=== PATIENT | female | born 1950 | race Caucasian/White ===

== ENCOUNTER 2022-01-10 07:03 | Outpatient (CLI) | payer MEDICARE, BC, SELFPAY ==
--- NOTE | 2022-01-10 07:15 | CT_ITS ---
WS: [id number] CT ABDOMEN PELVIS TECHNIQUE: Noncontrast CT of the abdomen and pelvis with coronal and sagittal reformatted images. CLINICAL INFORMATION: KYLEE COMPARISON: Ultrasound December 26, 2021 DLP: 1243.[address] scans at [facility] use at least one of these dose optimization techniques: automated e xposure control; mA and/or kV adjustment per patient size (includes targeted exams where dose is matc hed to clinical indication); or iterative reconstruction. FINDINGS: Marked cirrhotic configuration to the liver. Hypoechoic lesions seen in the LEFT hepatic lobe at the dome of the liver on the recent ultrasound not well seen on this noncontrast study. Bulky enlargement LEFT hepatic lobe likely corresponds to the previously described nodules. Small bilateral pleural effusions. Moderate esophageal hiatal hernia with partial intrathoracic stoma ch. Normal spleen. Pancreas appears normal. Multiple enlarged lymph nodes in the cody hepatis nonspe cific but may be reactive. Adrenal glands are normal. No hydronephrosis in either kidney. This can be followed up with MRI or ultrasound. Prior cholecystectomy. Anteverted uterus. Bladder is decompressed. Diffuse body wall anasarca.Mild to moderate abdominal asc ites. Perihepatic and perisplenic ascites. Sigmoid diverticulosis. Colon is decompressed. No evidence of high-grade bowel obstruction. Mild disc space narrowing L5-S1. CT/CT abdomen pelvis wo con [id number] IMPRESSION: 1. Marked hepatic cirrhosis with cirrhotic configuration to the liver. 2. Enlarged lobular LEFT hepatic lobe likely corresponding to the lesions seen on the recent ultrasound although additional evaluation limited without contra st. This can be followed up with MRI or ultrasound. 3. Moderate esophageal hiatal hernia with partial intrathoracic stomach. 4. Normal size spleen. 5. Diffuse body wall anasarca and mesenteric edema with mild to moderate abdom inal and pelvic ascites. 6. Multiple prominent lymph nodes within the cody hepatis likely reactive. 7. Small RIGHT greater than LEFT pleural effusions. 8. Sigmoid diverticulosis.
[2022-01-10] MEDS: iohexol 300 mg/mL 50 mL Btl PO (08:48)
[2022-01-10 10:57] LABS: Blood Urea Nitrogen 12 mg/dL (8-23); Glomerular Filtration Rate 24.6 mL/min (90-130)
== END 2022-01-10 07:04 | disposition home or self-care (01) ==
PROVIDERS: Radiology Neuroradiology; Visit Provider Family Medicine
DX: K74.60 Unspecified cirrhosis of liver (principal); R16.0 Hepatomegaly, not elsewhere classified; K44.9 Diaphragmatic hernia without obstruction or gangrene; R60.1 Generalized edema; J90 Pleural effusion, not elsewhere classified; K57.30 Diverticulosis of large intestine without perforation or abscess without bleeding
CPT/HCPCS: 74176; 82565; 84520

== ENCOUNTER 2022-01-19 02:02 | Inpatient (IN) | payer MEDICARE, BC, SELFPAY ==
[2022-01-19] VITALS (16 sets, daily range): BP systolic 99–139; BP diastolic 60–85; PULSE 92–109; RESP 15–22; TEMP 36.6–37.1; O2SAT 92–100; BMI 35.5
--- NOTE | 2022-01-19 02:34 | XRR_ITS ---
PROCEDURE INFORMATION: Exam: XR Chest Exam date and time: 01/19/2022 2:50 AM Age: 71 years old Clinical indication: Dyspnea; Additional info: Hypoxia, SOB TECHNIQUE: Imaging protocol: XR of the chest. Views: 1 view. COMPARISON: CT abdomen pelvis con [id number] 01/10/2022 9:47 AM FINDINGS: Lungs: Exam is limited by patient rotation and low lung volumes. Pleural spaces: Unremarkable. No pleural effusion. No pneumothorax. Heart/Mediastinum: Unremarkable. No cardiomegaly. Bones/joints: Unremarkable. XR/XR chest 1V portable [id number] IMPRESSION: No acute cardiopulmonary abnormality.
[2022-01-19 04:15] LABS: Basophils # 0.1 10^3/uL (0.0-0.1); Basophils % 0.2 %; Hematocrit 28.5 % (37.0-47.0); Hemoglobin 9.5 g/dL (11.5-15.3); Lymphocytes # 2.2 10^3/uL (0.8-4.8); Lymphocytes % 10.5 %; Mean Corpuscular HGB Conc 33.3 g/dL (30.0-36.0); Mean Platelet Volume 10.2 fL (7.4-10.4); Monocytes # 2.2 10^3/uL (0.2-0.9); Monocytes % 10.3 %; Neutrophils # 16.43 10^3/uL (1.8-7.7); Neutrophils % 77.5 %; Nucleated Red Blood Cells # 0.1 /100WBC; Nucleated Red Blood Cells % 0.2 %; Platelet Count 137 10^3/cmm (130-400); Red Blood Count 2.88 10^6/uL (4.1-5.3); Red Cell Distribution Width 19.4 % (12.1-15.1); White Blood Count 21.2 10^3/uL (4.0-10.0)
--- NOTE | 2022-01-19 04:23 | W.ED.ABDPA2 ---
HPI - Abdominal Pain General: Chief Complaint: Abdominal Pain Stated Complaint: ABDOMINAL PAIN Time Seen by Provider: 01/19/22 02:07 Source: patient and family History of Present Illness: 71-year-old female with a history of autoimmune hepatitis. She presents with abdominal distention, pain, radiating into her back. She denies any fever. She denies significant vomiting. She is jaundiced as well. She seemed to have worsened in terms of jaundice last week. CT scan was ordered last week by her primary physician as well as a ultrasound. She was feeling worse this morning, so she decided to come to the hospital. MD elicited complaint: abdominal pain Pertinent past history: other Onset (ago): day(s) Pain Consistency: constant Location: Diffuse Quality: aching Radiation: back Exacerbating factors: movement Relieving factors: nothing Associated Symptoms: Reports bloating and excessive flatus; Denies change in stool character, chills, coffee ground emesis, constipation, diarrhea, dysuria, fever(s), hematochezia and vomiting Review of Systems Const: Denies: fever(s), chills or body aches Eyes: Denies: change in vision Card: Denies: chest pain Resp: Reports: dyspnea GI: Reports: bloating and excessive flatus; Denies: vomiting, coffee ground emesis, diarrhea, constipation, change in stool character or hematochezia : Denies: dysuria Skin/Breast: Reports: changes in skin color Neuro: Denies: headache(s) Physical Exam Const: GENERAL APPEARANCE: cooperative and lethargic ORIENTATION/CONSCIOUSNESS: Yes lethargic HENMT: COMMON NORMALS: normocephalic, atraumatic and Normal external nose present HEAD & SCALP: normocephalic and atraumatic NOSE: Normal external nose present Eye: COMMON NORMALS: Equal, round and reactive pupils present and EOMs intact bilaterally SCLERA: scleral abnormal Laterality of scleral abnormality: positive bilateral scleral icterus PUPIL: Yes Equal, round and reactive pupils present Chest: COMMONS NORMALS: normal inspection of the chest Resp: COMMON NORMALS: normal respiratory effort and No use of accessory muscles AUSCULTATION: rales (slight) Cardio: COMMON NORMALS: regular rate and regular rhythm RATE: regular rate RHYTHM: regular rhythm GI: COMMON NORMALS: Soft to palpation INSPECTION: Yes abdominal distension PALPATION: Yes Soft to palpation and Yes Tenderness to palpation present (GI) (diffuse) Neuro: ZEKE COMA SCALE: document GCS findings [place] coma scale eye opening: To sound [place] coma scale verbal response: Orientated [place] coma scale motor response: Obey commands Zeke coma scale total score: 14 SENSORIUM/ORIENTATION: Yes lethargic Skin: GENERAL SKIN EXAM: jaundice Course Vital Signs: Vital signs: Vital Signs Temperature 98.8 F 01/19/22 20:20 Pulse Rate 91 01/20/22 05:18 Respiratory Rate 18 01/20/22 05:18 Blood Pressure 104/66 01/20/22 05:18 Pulse Oximetry 94 01/20/22 05:18 MDM - Abdominal Pain Medical Decision Making Patient with a history of autoimmune hepatitis presenting with abdominal distention and pain. She has a white blood cell count of 21, 77% neutrophils. AST and ALT are mildly elevated. Bilirubin is 12.8. Her INR is 4.8. Ammonia level is 25. Her sodium is 121. BUN [address] shows large volume belly ascites and a cirrhotic liver. It also shows bilateral small pleural effusions. We have no GI or hepatology availability at this facility. She will need transfer to subspecialty care. Her lactic acid is 5.9. She has been covered with IV Zosyn, fluid bolus, etc. 01/20/22 0650: This patient is still here. She has been accepted at [facility], but is awaiting a bed. She has been given IV fluids, hydrocortisone, and covered with antibiotics. Current vitals are heart rate sinus 90. Blood pressure 117/62. Saturations 91% on 2 L. We will call for an update from [facility] later this morning to see if bed is available. Lab Data : 01/19/22 03:58 01/19/22 04:45 Labs/Radiology: Radiology Impressions Chest X-Ray 01/19/22 02:34 IMPRESSION: No acute cardiopulmonary abnormality. Chest/Abdomen/Pelvis CT 01/19/22 04:50 IMPRESSION: Small bilateral pleural effusions with bibasilar atelectasis. IMPRESSION: 1. Cirrhotic morphology of the liver with large volume abdominopelvic ascites. 2. Mild mural thickening jejunal loops and portions of the colon may be reactive to the presence of ascites or could reflect a nonspecific enterocolitis. Laboratory Results WBC 21.2 10^3/uL (4.0-10.0) H 01/19/22 03:58 RBC 2.88 10^6/uL (4.1-5.3) L 01/19/22 03:58 Hgb 9.5 g/dL (11.5-15.3) L 01/19/22 03:58 Hct 28.5 % (37.0-47.0) L 01/19/22 03:58 MCV 99.0 fl (81-99) 01/19/22 03:58 MCH 33.0 pg (28.0-34.0) 01/19/22 03:58 MCHC 33.3 g/dL (30.0-36.0) 01/19/22 03:58 RDW 19.4 % (12.1-15.1) H 01/19/22 03:58 Plt Count 137 10^3/cmm (130-400) 01/19/22 03:58 MPV 10.2 fL (7.4-10.4) 01/19/22 03:58 Neut % (Auto) 77.5 % 01/19/22 03:58 Lymph % (Auto) 10.5 % 01/19/22 03:58 [place] % (Auto) 10.3 % 01/19/22 03:58 Eos % (Auto) 0.0 % 01/19/22 03:58 Baso % (Auto) 0.2 % 01/19/22 03:58 Neut # (Auto) 16.43 10^3/uL (1.8-7.7) H 01/19/22 03:58 Lymph # (Auto) 2.2 10^3/uL (0.8-4.8) 01/19/22 03:58 [place] # (Auto) 2.2 10^3/uL (0.2-0.9) H 01/19/22 03:58 Eos # (Auto) 0.0 10^3/uL (0.0-0.8) 01/19/22 03:58 Baso # (Auto) 0.1 10^3/uL (0.0-0.1) 01/19/22 03:58 Nucleated RBC % (auto) 0.2 % 01/19/22 03:58 Nucleated RBCs # 0.1 /100WBC 01/19/22 03:58 PT 45.50 SECONDS (12.1-14.9) H 01/19/22 03:58 INR 4.80 (0.8-1.2) H 01/19/22 03:58 Sodium 121 mmol/L (136-145) L 01/19/22 04:45 Potassium 3.7 mmol/L (3.5-5.1) 01/19/22 04:45 Chloride 90 mmol/L (98-107) L 01/19/22 04:45 Carbon Dioxide 24 mmol/L (22-29) 01/19/22 04:45 Anion Gap 10.7 (5-19) 01/19/22 04:45 BUN 44 mg/dL (8-23) H 01/19/22 04:45 Creatinine 1.6 mg/dL (0.5-0.9) H 01/19/22 04:45 GFR Calculation 31.9 mL/min (90-130) L 01/19/22 04:45 Glucose 120 mg/dL (65-115) H 01/19/22 04:45 Calculated Osmolality 264 mOsm/kg (285-295) L 01/19/22 04:45 Lactic Acid 8.5 mmol/L (0.5-2.2) H* 01/19/22 08:18 Lactic Acid (Sepsis) 2.9 mmol/L (0.5-2.2) H 01/19/22 11:05 Lactate 2.4 mmol/L (0.5-2.2) H 01/19/22 13:45 Calcium 11.1 mg/dL (8.5-10.5) H 01/19/22 04:45 Phosphorus 4.1 mg/dL (2.5-4.5) 01/19/22 04:45 Magnesium 2.3 mg/dL (1.7-2.3) 01/19/22 04:45 Total Bilirubin 12.8 mg/dL (0.15-1.2) H* 01/19/22 04:45 AST 235 U/L (0-32) H 01/19/22 04:45 ALT 82 U/L (0-33) H 01/19/22 04:45 Alkaline Phosphatase 144 IU/L (35-105) H 01/19/22 04:45 Ammonia 25 umol/L (11-51) 01/19/22 03:58 C-Reactive Protein 32.2 mg/L (0.0-4.9) H 01/19/22 04:45 Total Protein 5.9 g/dL (6.6-8.7) L 01/19/22 04:45 Albumin 1.8 g/dL (3.5-5.2) L 01/19/22 04:45 Globulin 4.1 g/dL (1.3-4.6) 01/19/22 04:45 Lipase 39 U/L (13-60) 01/19/22 04:45 Procalcitonin 0.93 ng/mL (0-0.5) H 01/19/22 04:45 Acetaminophen < 5.0 ug/mL (10-30) L 01/19/22 04:45 Ethyl Alcohol < 10 mg/dL (0-10) 01/19/22 04:45 Critical Care Time Critical Care Time: Critical Care Time: Yes Total Critical Care Time: 45 Attestation: This case had a high probability of a clinically significant, sudden, or life threatening deterioration of this patient's condition which required my full and direct attention, intervention and personal management. Time is independent of any procedures performed Discharge Plan Discharge Patient Disposition: Xfer Short-Term Hosp Clinical Impression: Hepatitis, autoimmune, Hyperbilirubinemia, Acute hepatic failure Condition: Serious Coding Level of Care Code ED Chucking Machine Set Up Operator for Florencio Fwd Exam Comprehensive
[2022-01-19 04:34] LABS: Lactate (Lactic Acid level) 5.9 mmol/L (0.5-2.2)
[2022-01-19 04:37] LABS: Ammonia 25 umol/L (11-51)
--- NOTE | 2022-01-19 04:50 | CTR_ITS ---
PROCEDURE INFORMATION: Exam: CT Chest With Contrast; Diagnostic Exam date and time: 01/19/2022 6:07 AM Age: 71 years old Clinical indication: Abdominal pain; Other: Hypoxia, sepsis; Additional info: Hypoxia, sepsis, abd pain back pain TECHNIQUE: Imaging protocol: Diagnostic computed tomography of the chest with contrast. Radiation optimization: All CT scans at this facility use at least one of these dose optimization techniques: automated exposure control; mA and/or kV adjustment per patient size (includes targeted exams where dose is matched to clinical indication); or iterative reconstruction. Contrast material: VISI 320; Contrast volume: 95 ml; Contrast route: INTRAVENOUS (IV); COMPARISON: 1. CR (CHEST, ) 01/19/2022 2:[address] abdomen pelvis wo con [id number] 01/10/2022 9:47 AM RADIATION DOSE METRICS: Total DLP (mGy-cm): 1680.16 FINDINGS: Lungs: Bibasilar atelectasis. Calcified granuloma in the right lung. Pleural spaces: Small bilateral pleural effusions. No pneumothorax. Heart: Unremarkable. No cardiomegaly. No pericardial effusion. Aorta: Unremarkable. No aortic aneurysm. Lymph nodes: Unremarkable. No enlarged lymph nodes. Bones/joints: Unremarkable. No acute fracture. Soft tissues: Unremarkable. PROCEDURE INFORMATION: Exam: CT Abdomen And Pelvis With Contrast Exam date and time: 01/19/2022 6:07 AM Age: 71 years old Clinical indication: Abdominal pain; Other: Hypoxia, sepsis; Additional info: Hypoxia, sepsis, abd pain back pain TECHNIQUE: Imaging protocol: Computed tomography of the abdomen and pelvis with contrast. Radiation optimization: All CT scans at this facility use at least one of these dose optimization techniques: automated exposure control; mA and/or kV adjustment per patient size (includes targeted exams where dose is matched to clinical indication); or iterative reconstruction. Contrast material: VISI 320; Contrast volume: 95 ml; Contrast route: INTRAVENOUS (IV); COMPARISON: 1. CR (CHEST, ) 01/19/2022 2:[address] abdomen pelvis wo con [id number] 01/10/2022 9:47 AM RADIATION DOSE METRICS: Total DLP (mGy-cm): 1680.16 FINDINGS: Diaphragm: Small hiatal hernia. Liver: Cirrhotic morphology of the liver. Gallbladder and bile ducts: The gallbladder appears to be absent. Pancreas: Normal. No ductal dilation. Spleen: Normal. No splenomegaly. Adrenal glands: Normal. No mass. Kidneys and ureters: Normal. No hydronephrosis. Stomach and bowel: Mild mural thickening of several jejunal loops. No bowel obstruction. Colonic diverticulosis without evidence of diverticulitis. Mild mural thickening of the right hemicolon, which may reflect changes of portal colopathy. There is also mild mural thickening of the distal transverse colon and splenic flexure. Appendix: No evidence of appendicitis. Intraperitoneal space: Large volume abdominopelvic ascites. Vasculature: Recanalization of the umbilical vein. Lymph nodes: Unremarkable. No enlarged lymph nodes. Urinary bladder: Unremarkable as visualized. Reproductive: Unremarkable as visualized. Bones/joints: Unremarkable. No acute fracture. Soft tissues: Unremarkable. CT/CT chest abd pel w con* IMPRESSION: Small bilateral pleural effusions with bibasilar atelectasis. IMPRESSION: 1. Cirrhotic morphology of the liver with large volume abdominopelvic ascites. 2. Mild mural thickening jejunal loops and portions of the colon may be reactive to the presence of ascites or could reflect a nonspecific enterocolitis.
[2022-01-19] MEDS: piperacillin-tazobactam 3.375 GM in sodium chloride 0.9% (plus) 50 ML IV ×2 (05:14→18:27)
[2022-01-19] MEDS: lactated ringers 1,000 ML 999 ML IV ×2 (05:16→05:24)
[2022-01-19 05:35] LABS: Alanine Aminotransferase 82 U/L (0-33); Albumin Level 1.8 g/dL (3.5-5.2); Alkaline Phosphatase 144 IU/L (35-105); Anion Gap 10.7 (5-19); Aspartate Amino Transferase 235 U/L (0-32); Blood Urea Nitrogen 44 mg/dL (8-23); C Reactive Protein 32.2 mg/L (0.0-4.9); Calcium 11.1 mg/dL (8.5-10.5); Carbon Dioxide 24 mmol/L (22-29); Chloride 90 mmol/L (98-107); Globulin 4.1 g/dL (1.3-4.6); Glomerular Filtration Rate 31.9 mL/min (90-130); Glucose 120 mg/dL (65-115); Lipase 39 U/L (13-60); Magnesium 2.3 mg/dL (1.7-2.3); Osmolality Calculated 264 mOsm/kg (285-295); Phosphorus 4.1 mg/dL (2.5-4.5); Potassium 3.7 mmol/L (3.5-5.1); Sodium 121 mmol/L (136-145); Total Protein 5.9 g/dL (6.6-8.7)
[2022-01-19 05:36] LABS: Procalcitonin 0.93 ng/mL (0-0.5)
[2022-01-19 05:48] LABS: Acetaminophen < 5.0 ug/mL (10-30); Alcohol Level < 10 mg/dL (0-10)
[2022-01-19 05:49] LABS: Total Bilirubin 12.8 mg/dL (0.15-1.2)
[2022-01-19] MEDS: sodium chloride 0.9% 1,000 ML 999 ML IV (08:13)
[2022-01-19] MEDS: hydrocortisone 100 mg/2 mL SDV IVP (08:13)
[2022-01-19 09:24] LABS: Lactic Sepsis W/Reflex 8.5 mmol/L (0.5-2.2)
[2022-01-19 09:32] LABS: Reflex Lactate Order REFLEX LACTIC ORDERD
[2022-01-19] MEDS: vancomycin 1,000 MG in sodium chloride 0.9% 250 ML 250 MG IV (09:36)
[2022-01-19 11:30] LABS: Lactic Acid level (Lactate) 2.9 mmol/L (0.5-2.2)
[2022-01-19] MEDS: lactated ringers 1,000 ML 100 ML IV ×2 (13:42→23:45)
[2022-01-19 14:18] LABS: Lactate (Lactic Acid level) 2.4 mmol/L (0.5-2.2)
--- NOTE | 2022-01-19 19:10 | ECG_ITS ---
[facility] Test Date: 2022-01-19 Pat Name: Patty Ng Department: Room: Gender: Female Backbreaker: : 1950 Requested By: Ángel Mcnulty Order Number: [id number] Tylor MD: Emil Vuong M.D. Measurements Intervals [place] Rate: 105 P: 27 UT: 175 QRS: -3 QRSD: 93 T: -8 QT: 324 QTc: 429 Interpretive Statements SINUS TACHYCARDIA LOW QRS VOLTAGE IN PRECORDIAL LEADS [QRS DEFLECTION < 1.0 mV IN CHEST LEADS] POSSIBLE ANTERIOR MYOCARDIAL INFARCTION , OF INDETERMINATE AGE [30 ms Q WAVE IN V3/V4, OR R < 0.2 mV IN V4] Compared to ECG 02/14/2018 01:55:09 Low QRS voltage now present Myocardial infarct finding still present Electronically Signed On 01-20-2022 9:00:39 CDT by Emil Vuong M.D. [email or web address]
[2022-01-19] MEDS: lidocaine 2% viscous 15 ML, aluminum-mag hydrox-simethicon 30 ML, sucralfate oral liq 1 GM PO (19:50)
[2022-01-20] VITALS (8 sets, daily range): BP systolic 103–118; BP diastolic 54–74; PULSE 81–94; RESP 13–19; O2SAT 91–94
[2022-01-20] MEDS: piperacillin-tazobactam 3.375 GM in sodium chloride 0.9% (plus) 50 ML IV (02:55)
--- NOTE | 2022-01-20 03:43 | PC.NURSE ---
[facility] transfer service called to check on patient. They stated they are still at capacity and she is still on the wait list.
--- NOTE | 2022-01-20 09:59 | PM.CONSULT ---
Providers/Reason For Consult Consulting Physician/Specialty*: Nemesio Alejo MD, hospitalist Reason for Consult*: Medical management Requesting Physician: Dr. Brown History of Present Illness History of Present Illness Patty Ng is a 71 year old female with history of autoimmune hepatitis and cirrhosis previously cared for in [place] who presents to the hospital with confusion, abdominal discomfort. She has not had any fever, vomiting or diarrhea. History is somewhat difficult with the patient's underlying confusion. She can tell me she is not short of breath, and has no chest discomfort. She relates no recent history of bleeding, hematemesis, melena, or hematochezia. 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 From my understanding [facility], Dr. Solomon, has accepted her in transfer and we are awaiting a bed assignment. Review of Systems General: Reports: 10 or more systems reviewed and unremarkable except in HPI and below Const: Reports: fatigue and malaise; Denies: fever(s) or chills Eyes: Denies: change in vision or blurry vision ENMT: Denies: throat pain Card: Denies: chest pain Resp: Denies: dyspnea GI: Reports: abdominal pain; Denies: nausea, vomiting, hematemesis, coffee ground emesis, hematochezia or melena : Denies: flank pain Musc: Denies: neck pain Skin/Breast: Denies: rash or pruritus Neuro: Denies: headache(s) Psych: Denies: anxiety or depression Endo: Denies: polyuria Herbie/Lymph: Denies: easy bruising All/Imm: Denies: urticaria Medications/Allergies Home Medications Medication Instructions Recorded Confirmed Last Taken Type lactulose 10 gram/15 mL oral 30 ml PO BID PRN 01/19/22 01/19/22 Unknown History solution prednisone 20 mg tablet See Rx Instructions .ROUTE .COMPLEX 01/19/22 01/19/22 Unknown History spironolactone 25 mg tablet 25 mg PO DAILY 01/19/22 01/19/22 Unknown History Allergies Allergy/AdvReac Type Severity Reaction Status Date / Time No Known Allergies Allergy Unverified 01/19/22 13:08 Current Medications Generic Name Dose Route Start Last Admin Trade Name Freq PRN Reason Stop Dose Admin Lactated Ringer's 1,000 mls @ 100 mls/hr 01/19/22 13:30 01/19/22 23:45 Lactated Ringers IV 100 mls/hr .Q10H KINA Administration PFSH Acute PFSH: Medical History (Updated 01/20/22 @ 12:44 by Nemesio Alejo MD) Cirrhosis Hepatitis, autoimmune Hypertension Surgical History (Updated 01/20/22 @ 12:34 by Nemesio Alejo MD) History of bladder surgery Family History (Updated 01/20/22 @ 12:35 by Nemesio Alejo MD) Other CAD (coronary artery disease) Social History (Updated 01/20/22 @ 12:34 by Nemesio Alejo MD) Smoking and tobacco status: never smoked Alcohol intake: former Vitals/I&O/Wt Last Vital Signs Temp 98.8 F 01/19/22 20:20 Pulse 90 01/20/22 07:47 Resp 18 01/20/22 05:18 BP 110/67 01/20/22 07:47 Pulse Ox 92 01/20/22 07:47 01/19/22 01/20/22 01/20/22 22:59 06:59 14:59 Intake Total 1100 / 3400 Balance 1100 / 3400 Weight last 48 hrs Weight 99.79 kg Physical Exam Narrative: General exam is a white female,, and confused, whose history is limited. Mucous membranes dry HEENT: Pupils equally round. Icterus noted. Oropharynx clear. Neck is supple no lymphadenopathy or thyromegaly Cardiovascular regular rate and rhythm with a 2/6 systolic murmur Lungs clear no wheezes or crackles Abdomen is slightly distended, positive fluid wave, generalized tenderness. exam is deferred Extremities no cyanosis or clubbing. 1+ edema is noted. Skin jaundiced Neuro confused but no obvious focal deficits Data : 01/19/22 03:58 01/19/22 04:45 Other Labs: EKG sinus tachycardia, normal axis, rate of 105 INR is 4.8 LFTs demonstrated a bilirubin of 12.8, AST 235, ALT 82, alk phos 144. CRP 32 Albumin 1.8 Calcium 11.1 Lactic acid 8.5 Procalcitonin 0.93 Acetaminophen level less than 5 and alcohol level less than 10 CT chest abdomen pelvis demonstrated small bilateral effusions, cirrhotic liver with large volume ascites, mild mural thickening jejunal loops Chest x-ray negative, no infiltrate Micro: Microbiology 01/19/22 05:28 Blood Culture - Preliminary Blood NEGATIVE TO DATE 01/19/22 05:26 Blood Culture - Preliminary Blood NEGATIVE TO DATE A&P Assessment and plan (1) Acute hepatic failure: Significant elevation of bilirubin, with significant elevation of INR. Given the patient's underlying autoimmune hepatitis this is consistent with acute liver failure superimposed on chronic liver disease. Etiology could be SBP. Status: Acute (2) Abdominal pain: Patient with significant abdominal pain on presentation Cannot rule out SBP Zosyn given initially. Will change to Primaxin considering child's class C. Adjust dose for renal dysfunction. Blood cultures were drawn Secondary to markedly elevated INR paracentesis was not performed Add midodrine, albumin Status: Acute (3) Hepatitis, autoimmune: History of autoimmune hepatitis. It appears she was on steroids. We will give hydrocortisone 100 mg IV now, and then 50 mg IV every 8 hours pending transfer. Monitor for any hypotension, suggestive of adrenal insufficiency. Currently she does not have hypotension. Status: Acute (4) Hyponatremia: Significant hyponatremia, present on arrival. LR was initiated by the emergency department staff Repeat CMP currently, to determine if sodium level is increasing. Status: Acute (5) Acute kidney injury: Cannot rule out hepatorenal syndrome Albumin, midodrine initiated Continue LR currently Monitor for improvement Place Ingram to monitor output accurately, check to see if UTI is present Status: Acute (6) Ascites: Currently secondary to markedly elevated INR not candidate for paracentesis Status: Acute (7) Anemia: Follow closely Status: Acute Plan Multiple other medical problems as outlined in past medical history Currently full code SCDs for DVT prophylaxis when instituted. Not candidate for anticoagulation secondary to anemia and markedly elevated INR Consult Attestations Medical Necessity Statement: Will require greater than 2 midnight stay for evaluation and treatment of hepatic failure, renal failure, possible SBP. Currently in the process of being transferred. Coding Level of Care Code Acute Hip Hop Dance Instructor for Florencio Bueno Diagnoses Acute hepatic failure K72.00 Abdominal pain R10.9 Hepatitis, autoimmune K75.4 Hyponatremia E87.1 Acute kidney injury N17.9 Ascites R18.8 Anemia D64.9
[2022-01-20] MEDS: midodrine 5 mg TABLET PO ×2 (10:50→18:52)
[2022-01-20] MEDS: hydrocortisone 100 mg/2 mL SDV IVP (10:51)
[2022-01-20] MEDS: lactated ringers 1,000 ML 100 ML IV ×2 (11:21→23:37)
[2022-01-20 12:56] LABS: Add Urine Microscopic? NO; Charge for UA Resulting for Rev
[2022-01-20 13:06] LABS: Bilirubin Urine 2+ (Negative); Blood Urine Neg (Negative); Glucose Urine UA Norm (Normal); Ketones Urine 1+ (Negative); Nitrate Urine Negative (Negative); Protein Urine Neg (Negative); Urine Appearance Clear (CLEAR); Urine Color Dark Yellow (Yellow); pH Urine 5 (5-7)
[2022-01-20 13:07] LABS: Leukocyte Esterase Urine Negative (Negative); Urobilinogen Urine 4 mg/dL (Negative)
[2022-01-20 13:48] LABS: Basophils % 0.2 %; Eosinophils % 0.1 %; Hematocrit 26.8 % (37.0-47.0); Hemoglobin 8.8 g/dL (11.5-15.3); Lymphocytes # 1.8 10^3/uL (0.8-4.8); Lymphocytes % 10.7 %; Mean Corpuscular HGB Conc 32.8 g/dL (30.0-36.0); Mean Corpuscular Hemoglobin 33.3 pg (28.0-34.0); Mean Corpuscular Volume 101.5 fl (81-99); Mean Platelet Volume 10.5 fL (7.4-10.4); Monocytes # 1.6 10^3/uL (0.2-0.9); Monocytes % 9.8 %; Neutrophils # 12.82 10^3/uL (1.8-7.7); Neutrophils % 77.2 %; Nucleated Red Blood Cells % 0 %; Platelet Count 110 10^3/cmm (130-400); Red Blood Count 2.64 10^6/uL (4.1-5.3); Red Cell Distribution Width 18.9 % (12.1-15.1); White Blood Count 16.6 10^3/uL (4.0-10.0)
[2022-01-20 14:04] LABS: INR 4.36 (0.8-1.2)
[2022-01-20 14:08] LABS: Alanine Aminotransferase 72 U/L (0-33); Albumin Level 2.3 g/dL (3.5-5.2); Alkaline Phosphatase 215 IU/L (35-105); Anion Gap 12.3 (5-19); Aspartate Amino Transferase 174 U/L (0-32); Blood Urea Nitrogen 51 mg/dL (8-23); Calcium 11.4 mg/dL (8.5-10.5); Carbon Dioxide 27 mmol/L (22-29); Chloride 90 mmol/L (98-107); Glomerular Filtration Rate 29.7 mL/min (90-130); Glucose 107 mg/dL (65-115); Osmolality Calculated 274 mOsm/kg (285-295); Potassium 4.3 mmol/L (3.5-5.1); Sodium 125 mmol/L (136-145); Total Protein 6.3 g/dL (6.6-8.7)
[2022-01-21] VITALS (16 sets, daily range): BP systolic 107–134; BP diastolic 53–66; PULSE 83–109; RESP 12–19; TEMP 36.4–36.6; O2SAT 90–93
[2022-01-21 06:26] LABS: Basophils % 0.2 %; Hematocrit 25.8 % (37.0-47.0); Hemoglobin 8.6 g/dL (11.5-15.3); Lymphocytes # 1.5 10^3/uL (0.8-4.8); Lymphocytes % 11.3 %; Mean Corpuscular HGB Conc 33.3 g/dL (30.0-36.0); Mean Corpuscular Hemoglobin 34.4 pg (28.0-34.0); Mean Corpuscular Volume 103.2 fl (81-99); Mean Platelet Volume 10.1 fL (7.4-10.4); Monocytes # 1.3 10^3/uL (0.2-0.9); Monocytes % 9.5 %; Neutrophils # 10.05 10^3/uL (1.8-7.7); Neutrophils % 76.5 %; Nucleated Red Blood Cells % 0.2 %; Platelet Count 82 10^3/cmm (130-400); White Blood Count 13.1 10^3/uL (4.0-10.0)
[2022-01-21 06:42] LABS: INR 4.69 (0.8-1.2)
[2022-01-21 06:51] LABS: Alanine Aminotransferase 60 U/L (0-33); Albumin Level 2.1 g/dL (3.5-5.2); Alkaline Phosphatase 141 IU/L (35-105); Anion Gap 11.4 (5-19); Aspartate Amino Transferase 130 U/L (0-32); Blood Urea Nitrogen 55 mg/dL (8-23); Carbon Dioxide 26 mmol/L (22-29); Chloride 94 mmol/L (98-107); Globulin 3.4 g/dL (1.3-4.6); Glomerular Filtration Rate 31.9 mL/min (90-130); Glucose 95 mg/dL (65-115); Osmolality Calculated 279 mOsm/kg (285-295); Potassium 4.4 mmol/L (3.5-5.1); Sodium 127 mmol/L (136-145); Total Protein 5.5 g/dL (6.6-8.7)
[2022-01-21 06:52] LABS: Total Bilirubin 12.6 mg/dL (0.15-1.2)
[2022-01-21] MEDS: hydrocortisone 100 mg/2 mL SDV 50 MG IVP ×3 (07:38→23:52)
[2022-01-21] MEDS: phytonadione (ADULT) 10 mg/mL Ampule 1 mL PO (07:38)
--- NOTE | 2022-01-21 08:28 | PC.NURSE ---
UPDATE TO U CALLED, NOTIFIED THAT WE ARE STILL NEEDING A BED.
[2022-01-21] MEDS: midodrine 5 mg TABLET PO ×2 (09:35→16:53)
[2022-01-21] MEDS: lactated ringers 1,000 ML 75 ML IV ×2 (10:02→23:00)
--- NOTE | 2022-01-21 10:06 | P.PN_ITS ---
Subjective Subjective: aPtty is conversant, but confused. She reports her belly hurts less today, but pain is still present. Denies any nausea. Transfer to [facility] still pending. Medications: Reviewed: Yes Vitals/I&O/Wt Last Vital Signs Temp 97.9 F 01/21/22 08:34 Pulse 86 01/21/22 10:04 Resp 12 01/21/22 10:04 BP 118/59 01/21/22 10:04 Pulse Ox 93 01/21/22 10:04 01/20/22 01/21/22 01/21/22 22:59 06:59 14:59 Intake Total 100 / 1300 1300 / 2600 1100 / 1100 Output Total 500 / 500 Balance -400 / 800 1300 / 2100 1100 / 1100 Physical Exam 2 Narrative: General exam is a white female,, no distress, sleepy and confused HEENT: Pupils equally round. Icterus noted. Oropharynx clear. Neck is supple no lymphadenopathy or thyromegaly Cardiovascular regular rate and rhythm with a 2/6 systolic murmur Lungs clear no wheezes or crackles Abdomen is slightly distended, positive fluid wave, generalized tenderness. exam demonstrates Ingram, yellow urine consistent with elevated bilirubin Extremities no cyanosis or clubbing. 1+ edema is noted. Skin jaundiced Neuro confused but no obvious focal deficits Urinary Catheter Management: Ingram Latex: Cath Placed During This Visit: yes Reason for Continuing Indwelling Catheter: Accurate Measurement of Urinary Output in Critically Ill Patients Urinary Catheter Date of Insertion: 01/20/22 Data : 01/21/22 06:17 01/21/22 06:17 Micro: Microbiology 01/19/22 05:28 Blood Culture - Preliminary Blood NEGATIVE TO DATE 01/19/22 05:26 Blood Culture - Preliminary Blood NEGATIVE TO DATE A&P Assessment and plan (1) Acute hepatic failure: Significant elevation of bilirubin, with significant elevation of INR. Given the patient's underlying autoimmune hepatitis this is consistent with acute liver failure superimposed on chronic liver disease. Etiology could be SBP. INR slightly higher today at 4.69 Give 10 mg of vitamin K p.o. Bilirubin slightly lower at 12.6. LFTs slightly improved. Albumin 2.1. Status: Acute (2) Abdominal pain: Patient with significant abdominal pain on presentation Cannot rule out SBP Zosyn given initially. Changed to Primaxin yesterday, considering child's class C. Adjust dose for renal dysfunction. Blood cultures were drawn and pending Secondary to markedly elevated INR paracentesis was not performed Midodrine and albumin were added Abdominal pain is somewhat improved. Status: Acute (3) Hepatitis, autoimmune: History of autoimmune hepatitis. It appears she was on steroids. We will give hydrocortisone 100 mg IV now, and then 50 mg IV every 8 hours pending transfer. Monitor for any hypotension, suggestive of adrenal insufficiency. Currently she does not have hypotension and it has not developed. Status: Acute (4) Hyponatremia: Significant hyponatremia, present on arrival. LR was initiated by the emergency department staff Sodium is improving. Reduce IV fluids slightly. Status: Acute (5) Acute kidney injury: Cannot rule out hepatorenal syndrome Albumin, midodrine initiated Continue LR currently. Secondary to fluid overload status reduce fluids to 75 cc an hour Creatinine 1.6 today. Was 1.7 yesterday. Continue Ingram Status: Acute (6) Ascites: Currently secondary to markedly elevated INR not candidate for paracentesis Status: Acute (7) Anemia: Follow closely. Currently stable Status: Acute Plan Acute metabolic encephalopathy. Not candidate for large doses of lactulose today considering renal failure. Check ammonia level tomorrow. Multiple other medical problems as outlined in past medical history Currently full code SCDs for DVT prophylaxis when instituted. 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
--- NOTE | 2022-01-21 10:08 | PC.NURSE ---
PATIENT SWITCHED TO HOSPITAL BED. PATIENT RINALDI CHECKED AND MONITORS BACK IN PLACE. PATIENT MADE COMFORTABLE IN BED. PATIENT HAS NO FURTHER NEEDS AT THIS TIME.
--- NOTE | 2022-01-21 13:27 | P.EN_ITS ---
Event Note Event Note: Initial consult should service patient's history and physical on admission. This patient has been holding for a bed at [facility], which she will continue to do, but it is not feasible to keep her in the emergency department any longer. I will continue to follow as I have been doing in the emergency department. See progress note from today, consult that was done initially.
[2022-01-21 18:24] LABS: Glucose Point of Care 93 mg/dL (70-110)
[2022-01-21 21:43] LABS: Glucose Point of Care 98 mg/dL (70-110)
[2022-01-22] VITALS (23 sets, daily range): BP systolic 77–134; BP diastolic 48–87; PULSE 101–124; RESP 15–31; TEMP 36–36.9; O2SAT 81–96
--- NOTE | 2022-01-22 01:18 | PC.NURSE ---
i reported high pulse 113 to nurse
[2022-01-22 05:34] LABS: Basophils % 0.1 %; Hematocrit 21.6 % (37.0-47.0); Hemoglobin 6.9 g/dL (11.5-15.3); Lymphocytes # 1.5 10^3/uL (0.8-4.8); Lymphocytes % 9.8 %; Mean Corpuscular HGB Conc 31.9 g/dL (30.0-36.0); Mean Corpuscular Hemoglobin 33.8 pg (28.0-34.0); Mean Corpuscular Volume 105.9 fl (81-99); Mean Platelet Volume 11.4 fL (7.4-10.4); Monocytes % 13.2 %; Neutrophils # 10.83 10^3/uL (1.8-7.7); Neutrophils % 72.2 %; Nucleated Red Blood Cells # 0.1 /100WBC; Nucleated Red Blood Cells % 0.6 %; Platelet Count 104 10^3/cmm (130-400); Red Blood Count 2.04 10^6/uL (4.1-5.3); Red Cell Distribution Width 19.6 % (12.1-15.1)
[2022-01-22 06:07] LABS: Ammonia 80 umol/L (11-51)
[2022-01-22 06:08] LABS: Alanine Aminotransferase 49 U/L (0-33); Albumin Level 2.1 g/dL (3.5-5.2); Alkaline Phosphatase 102 IU/L (35-105); Anion Gap 13.6 (5-19); Aspartate Amino Transferase 115 U/L (0-32); Blood Urea Nitrogen 70 mg/dL (8-23); Calcium 11.5 mg/dL (8.5-10.5); Carbon Dioxide 25 mmol/L (22-29); Chloride 95 mmol/L (98-107); Globulin 2.9 g/dL (1.3-4.6); Glomerular Filtration Rate 23.3 mL/min (90-130); Glucose 77 mg/dL (65-115); Osmolality Calculated 287 mOsm/kg (285-295); Potassium 4.6 mmol/L (3.5-5.1); Sodium 129 mmol/L (136-145)
[2022-01-22 06:36] LABS: Glucose Point of Care 82 mg/dL (70-110)
[2022-01-22 06:36] LABS: Magnesium 2.7 mg/dL (1.7-2.3)
[2022-01-22 06:38] LABS: Total Bilirubin 11.8 mg/dL (0.15-1.2)
--- NOTE | 2022-01-22 06:47 | XR_ITS ---
WS: [id number] Exam: XR chest 1V portable [id number] Date/Time of Exam: 01/22/2022 6:52 AM Reason For Exam: hypoxia Comparison 01/19/2022. The lungs are clear. Chronically elevated right diaphragm. Heart size top limits normal. No obvious p leural effusion. Mediastinal contour is normal. Bony structures are intact. Monitoring leads superimp ose the chest. XR/XR chest 1V portable [id number] IMPRESSION: 1. Chronically elevated right diaphragm. No acute process noted. No significant change.
[2022-01-22] MEDS: phytonadione (ADULT) 10 mg/mL Ampule 1 mL PO (07:05)
[2022-01-22] MEDS: midodrine 5 mg TABLET PO (09:01)
--- NOTE | 2022-01-22 10:10 | PC.NURSE ---
Dr. Brown at bedside to perform central line. Sterile drape and setup performed. Timeout performed at bedside under ultrasound guidance at [address] Brown, Young Morejon, ARTURO, [place], certified nursing attendant, Vi Ricardo RN, Ruebn Mondragon, ARTURO, and Neema Walsh, FIELD MECHANIC/SITE LEAD. Timeout appropriate and correct for patient and procedure. Dr. Brown explained the procedure to the patient and numbed the area with 1% lidocaine. Introducer and catheter inserted to right subclavian. Catheter patent at 1013. XR is on standby. Call placed for stat XR for placement verification at 1014.
--- NOTE | 2022-01-22 10:17 | XR_ITS ---
WS: [id number] Exam: XR chest 1V portable [id number] Date/Time of Exam: 01/22/2022 10:17 AM Reason For Exam: Central line placement verification Comparison 01/22/2022. 0703 hours. A right-sided IJ central line has been placed and appears to extend into the right atrium. The lungs are fully expanded. Chronic elevation of the right diaphragm. Heart size top limits normal. There may be a small left pleural effusion present. Monitoring leads superimpose the chest. XR/XR chest 1V portable [id number] IMPRESSION: 1. Right-sided IJ catheter extends into the region of the right atrium. No othe r significant change when compared to the previous study performed on the same day.
--- NOTE | 2022-01-22 10:30 | PC.NURSE ---
1020: XR in room, verified by Dr. Brown and patricia for use. Patient being transferred to ICU.
--- NOTE | 2022-01-22 10:40 | ECG_ITS ---
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 Measurements Intervals [place] Rate: 111 P: 6 [place]: 169 QRS: -7 QRSD: 90 T: -15 QT: 322 QTc: 439 Interpretive Statements SINUS TACHYCARDIA LOW QRS VOLTAGE IN PRECORDIAL LEADS [QRS DEFLECTION < 1.0 mV IN CHEST LEADS] PROBABLE ANTERIOR MYOCARDIAL INFARCTION , OF INDETERMINATE AGE [35 ms Q WAVE IN V3/V4] Compared to ECG 01/19/2022 19:16:19 No significant changes Electronically Signed On 01-22-2022 17:06:38 CDT by Poncho Alegria M.D. [id number]
--- NOTE | 2022-01-22 10:45 | P.PN_ITS ---
Subjective Subjective: Patient is confused. Denies any pain or shortness of breath. No nausea or vomiting. During the night oxygen requirement went up to 8 L. This morning she is hypotensive. She is also hypoglycemic with an Accu-Chek at bedside around 60. Hemoglobin was 6.9 on this morning's lab. I discussed with her daughter, and her family regarding her directive of care in detail and she is full code. Her daughter was also able to delineate some further medical history that was not previously available. The daughter does not live with the patient currently and does not know her current actions but reports that she does have a history of alcohol use as well and previously was drinking quite heavily. She believes she cut down or quit significantly in the last year. She also relates that she has a history of a brain aneurysm with clipping in the past. Medications: Reviewed: Yes Vitals/I&O/Wt Last Vital Signs Temp 97.3 F L 01/22/22 07:43 Pulse 111 H 01/22/22 08:55 Resp 17 01/22/22 08:55 BP 87/58 01/22/22 07:43 Pulse Ox 91 01/22/22 08:55 01/21/22 01/22/22 01/22/22 22:59 06:59 14:59 Intake Total 220 / 1420 1237.5 / 2657.5 Output Total 250 / 250 Balance 220 / 1420 987.5 / 2407.5 Physical Exam Narrative: General exam is a jaundiced female, confused, in no distress, requiring 8 L of oxygen HEENT: Pupils equally round. Icterus noted. Oropharynx clear. Neck is supple no lymphadenopathy or thyromegaly Cardiovascular regular rate and rhythm with a 2/6 systolic murmur Lungs clear no wheezes or crackles Abdomen is slightly distended, positive fluid wave, generalized tenderness. exam demonstrates Ingram, yellow urine consistent with elevated bilirubin Extremities no cyanosis or clubbing. 1+ edema is noted. Skin jaundiced Neuro confused but no obvious focal deficits Urinary Catheter Management: Ingram Latex: Cath Placed During This Visit: yes Reason for Continuing Indwelling Catheter: Acute Urinary Retention or Obstruction Urinary Catheter Date of Insertion: 01/20/22 Data : 01/22/22 05:10 01/22/22 05:10 A&P Assessment and plan (1) Acute hepatic failure: Significant elevation of bilirubin, with significant elevation of INR. Given the patient's underlying autoimmune hepatitis this is consistent with acute liver failure superimposed on chronic liver disease. Etiology could be SBP. INR has now increased to 7. She got 10 mg of vitamin K yesterday. She was given another 10 mg of vitamin K today. Bilirubin 11.8. ALT 49. Ammonia level 80. She has now developed some hypoglycemia. Frequent Accu-Cheks are being done. She is receiving an amp of D50 now and will get D10 normal saline at 30 cc an hour. Status: Acute (2) Abdominal pain: Patient with significant abdominal pain on presentation Cannot rule out SBP Zosyn given initially. Currently on Primaxin, considering child's class C. Blood cultures were drawn and pending Secondary to markedly elevated INR paracentesis was not performed Patient currently on midodrine and albumin. With transfer to ICU for development of hypotension midodrine will be discontinued. Abdominal pain is somewhat improved. Status: Acute (3) Hepatitis, autoimmune: History of autoimmune hepatitis. It appears she was on steroids. We will give hydrocortisone 100 mg IV now, and then 50 mg IV every 8 hours pending transfer. Daughter, has now shared that her mother has drank heavily in the past which she believes she slowed down or stopped within the last year Status: Acute (4) Hyponatremia: Slow improvement Status: Acute (5) Acute kidney injury: Worsening renal function consistent with hepatorenal syndrome Continue albumin. Midodrine will be discontinued and epinephrine started. Octreotide ordered. Continue Ingram Status: Acute (6) Ascites: Currently secondary to markedly elevated INR not candidate for paracentesis Status: Acute (7) Anemia: Hemoglobin has decreased to 6.9. Transfusion of 1 unit packed red blood cells ordered. Reassess following transfusion. Status: Acute (8) Hypotension: Significant hypotension has developed. Norepinephrine has been initiated upon transfer to ICU Status: Acute Plan Acute metabolic encephalopathy. Not candidate for large doses of lactulose today considering renal failure. Ammonia level elevated. Rifaximin ordered. Multiple other medical problems as outlined in past medical history Currently full code SCDs for DVT prophylaxis when instituted. Not candidate for anticoagulation secondary to anemia and markedly elevated INR Protonix for GI prophylaxis Attestations Medical Necessity Statement*: Needs continued hospitalization for liver and kidney failure associated with hypotension Critical Care Time: The high probability of a clinically significant, sudden or life threatening deterioration of the patient's [renal, hepatic, cardiac system(s) required my full and direct attention, intervention and personal management. The critical care time is as shown. 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
--- NOTE | 2022-01-22 10:46 | PC.NURSE ---
0945: Patient was hypotensive at 85/51 and notably jaundiced. Young Morejon RN notified Kinza Hall, used car sales supervisor, Dr. Alejo, and Kinza Hall, used car sales supervisor who presented to the room. We obtained a stat EKG and Young Saba RNday haul youth supervisor attempted an IV start using ultrasound guidance. Midodrine was administered per Dr. Alejo's order. FSBG result at bedside was 64. IV access was not able to be obtained under US guidance, so Dr. Brwon was called from the ED to start a central line.
[2022-01-22] MEDS: sodium chloride 0.9% (100 ml) 100 ML 10 ML (11:00)
[2022-01-22] MEDS: octreotide 500 MCG in sodium chloride 0.9% (100 ml) 100 ML 10.1 MCG IV (11:04)
[2022-01-22] MEDS: pantoprazole 40 mg SDV IVP ×2 (11:08→11:26)
[2022-01-22 11:41] LABS: Glucose Point of Care 150 mg/dL (70-110)
--- NOTE | 2022-01-22 11:45 | PC.NURSE ---
Transfer Pt transferred from Med Surg. Pt has right IJ with levophed at 6 and albumin running. Pt is waking to verbal commands. 1 amp of d50 given at 1030. Blood sugar at 1100 is 150. D10 with NS has been started at 30ml/hr. Family is at bedside.
--- NOTE | 2022-01-22 15:40 | PC.NURSE ---
GI Bleed Patient with dark watery bowel movement, moderate amount. Dr. Alejo notified. See orders for RBCs and FFP.
--- NOTE | 2022-01-22 16:16 | PC.NURSE ---
Family called and notified of patient's condition and that patient will be transferred to [facility] bed [address] [place] [address]
--- NOTE | 2022-01-22 16:50 | PM.TDS ---
Transfer Summary Providers Date of Admission: 01/21/22 13:30 Date of Discharge/Transfer: 01/22/22 Attending Provider at Admission: Nemesio Alejo MD Attending Provider at Transfer: Nemesio Alejo MD Transfer Plans: Anticipated date of transfer: 01/22/22. Receiving Facility: [facility], [facility]. Receiving Provider: Dr. 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 She also related a past history of HTN, cerebral aneurysm with history of clipping. She was found to be quite hyponatremic, have significant elevation of bilirubin, as well as an elevated creatinine. Considering her underlying liver disease, and associated renal failure the ED department arranged acceptance to tertiary care for availability of GI/hepatology. I was consulted when it became apparent that transfer would not happen quickly and patient would likely need to transition into the hospital prior to transfer. I initiated broad spectrum antibiotics in the form of Primaxin, and started midodrine as well as albumin and IVF's for her likely hepatorenal syndrome. Hydrocortisone was initiated secondary to her steroid use. Vitamin K was given for elevated INR. Third day of hospital stay she seemed somewhat better, had not been hypotensive, creat had decreased 1.6, INR still elevated at 4.69, sodium had improved to 127, bilirubin slightly improved. Early in the morning of 01/22 she worsened with decreased BP. She required 8 L of oxygen, CXR no obvioius pulmonary edema. Creat had worsened to 2.1 and HGB had dropped to 6.9. A central line was placed right IJ and she was transferred to the ICU where she was placed on norepinephrine, octreotide, and albumin was continued. Blood and FFP were ordered. Midodrine discontinued. I visited with [facility] to change her status to ICU. In the afternoon she had a large dark stool, but vitals remained stable on 10 of norepinephrine. Protonix IV was increased. BP 105/58, heart rate 115. She is currently receving her second unit of blood as well as FFP. Room assignment has now been given for the MICU at [facility] and transport being arranged. I have talked with the family regarding risks of transfer including during transfer. No further blood stools have been noted. I have called to update the MICU at [facility] secondary to her status change from this morning(addition of diagnosis of GI bleed) and am awaiting a call back. CT of chest, abdomen and pelvis was done on admission and did not show portal or hepatic vein thrombosis. It did show significant cirrhosis and ascites. In process of discussed care with multiple family members a daughter did share her mother had drank heavily in the past and had cut down or quit over the last year. Physical Exam Narrative: See exam done earlier today Urinary Catheter Management: Ingram Latex: Cath Placed During This Visit: yes Reason for Continuing Indwelling Catheter: Acute Urinary Retention or Obstruction Urinary Catheter Date of Insertion: 01/20/22 TS Data Studies Completed and Pending Pending at discharge Category Date Time Status ABO/Rh Type Routine Lab 01/22/22 07:35 Results Blood Culture Stat Lab 01/19/22 05:28 Results CBC Auto Diff [Complete Blood Count w/Auto] AM LABS Lab 01/23/22 04:00 Ordered CMP [Comprehensive Metabolic Panel] AM LABS Lab 01/23/22 04:00 Ordered Complete Crossmatch Routine Lab 01/22/22 07:35 Results FFP [Frozen Plasma FZ <24 1st Cont] Routine Lab 01/22/22 07:35 Results Hemoglobin and Hematocrit Routine Lab 01/22/22 11:08 Ordered Leukocyte Reduced RBC Routine Lab 01/22/22 07:35 Results Magnesium AM LABS Lab 01/23/22 04:00 Ordered Prothrombin Time INR AM LABS Lab 01/23/22 04:00 Ordered Type and Screen Routine Lab 01/22/22 07:35 Results Labs from last 24 hours 01/22/22 01/22/22 01/22/22 11:06 07:35 06:29 WBC RBC Hgb Hct MCV MCH MCHC RDW Plt Count MPV Neut % (Auto) Lymph % (Auto) [place] % (Auto) Eos % (Auto) Baso % (Auto) Neut # (Auto) Lymph # (Auto) [place] # (Auto) Eos # (Auto) Baso # (Auto) Nucleated RBC % (auto) Nucleated RBCs # PT INR Sodium Potassium Chloride Carbon Dioxide Anion Gap BUN Creatinine GFR Calculation Glucose POC Glucose 150 H 82 Calculated Osmolality Calcium Magnesium Total Bilirubin AST ALT Alkaline Phosphatase Ammonia Total Protein Albumin Globulin Blood Type O Negative Rho(D) Type Negative Antibody Screen Negative Crossmatch See Detail 01/22/22 01/22/22 01/22/22 05:10 05:10 05:10 WBC RBC Hgb Hct MCV MCH MCHC RDW Plt Count MPV Neut % (Auto) Lymph % (Auto) [place] % (Auto) Eos % (Auto) Baso % (Auto) Neut # (Auto) Lymph # (Auto) [place] # (Auto) Eos # (Auto) Baso # (Auto) Nucleated RBC % (auto) Nucleated RBCs # PT INR Sodium 129 L Potassium 4.6 Chloride 95 L Carbon Dioxide 25 Anion Gap 13.6 BUN 70 H Creatinine 2.1 H GFR Calculation 23.3 L Glucose 77 POC Glucose Calculated Osmolality 287 Calcium 11.5 H Magnesium 2.7 H Total Bilirubin 11.8 H* AST 115 H ALT 49 H Alkaline Phosphatase 102 Ammonia 80 H Total Protein 5.0 L Albumin 2.1 L Globulin 2.9 Blood Type Rho(D) Type Antibody Screen Crossmatch 01/22/22 01/22/22 01/21/22 05:10 05:10 21:34 WBC 15.0 H RBC 2.04 L Hgb 6.9 L Hct 21.6 L MCV 105.9 H MCH 33.8 MCHC 31.9 RDW 19.6 H Plt Count 104 L MPV 11.4 H Neut % (Auto) 72.2 Lymph % (Auto) 9.8 [place] % (Auto) 13.2 Eos % (Auto) 0.0 Baso % (Auto) 0.1 Neut # (Auto) 10.83 H Lymph # (Auto) 1.5 [place] # (Auto) 2.0 H Eos # (Auto) 0.0 Baso # (Auto) 0.0 Nucleated RBC % (auto) 0.6 Nucleated RBCs # 0.1 PT 61.00 H INR 7.00 H* Sodium Potassium Chloride Carbon Dioxide Anion Gap BUN Creatinine GFR Calculation Glucose POC Glucose 98 Calculated Osmolality Calcium Magnesium Total Bilirubin AST ALT Alkaline Phosphatase Ammonia Total Protein Albumin Globulin Blood Type Rho(D) Type Antibody Screen Crossmatch 01/21/22 16:24 WBC RBC Hgb Hct MCV MCH MCHC RDW Plt Count MPV Neut % (Auto) Lymph % (Auto) [place] % (Auto) Eos % (Auto) Baso % (Auto) Neut # (Auto) Lymph # (Auto) [place] # (Auto) Eos # (Auto) Baso # (Auto) Nucleated RBC % (auto) Nucleated RBCs # PT INR Sodium Potassium Chloride Carbon Dioxide Anion Gap BUN Creatinine GFR Calculation Glucose POC Glucose 93 Calculated Osmolality Calcium Magnesium Total Bilirubin AST ALT Alkaline Phosphatase Ammonia Total Protein Albumin Globulin Blood Type Rho(D) Type Antibody Screen Crossmatch Completed Studies During Hospitalization Category Date Time Status CT chest abd pel w con* Urgent Cat Scan 01/19/22 04:50 Completed CXRP [XR chest 1V portable [id number]] Routine Exams 01/22/22 06:47 Completed XR chest 1V portable [id number] Stat Exams 01/22/22 10:17 Completed XR chest 1V portable [id number] Urgent Exams 01/19/22 02:34 Completed Laboratory Last Values WBC 15.0 10^3/uL (4.0-10.0) H 01/22/22 05:10 RBC 2.04 10^6/uL (4.1-5.3) L 01/22/22 05:10 Hgb 6.9 g/dL (11.5-15.3) L 01/22/22 05:10 Hct 21.6 % (37.0-47.0) L 01/22/22 05:10 MCV 105.9 fl (81-99) H 01/22/22 05:10 MCH 33.8 pg (28.0-34.0) 01/22/22 05:10 MCHC 31.9 g/dL (30.0-36.0) 01/22/22 05:10 RDW 19.6 % (12.1-15.1) H 01/22/22 05:10 Plt Count 104 10^3/cmm (130-400) L 01/22/22 05:10 MPV 11.4 fL (7.4-10.4) H 01/22/22 05:10 Neut % (Auto) 72.2 % 01/22/22 05:10 Lymph % (Auto) 9.8 % 01/22/22 05:10 [place] % (Auto) 13.2 % 01/22/22 05:10 Eos % (Auto) 0.0 % 01/22/22 05:10 Baso % (Auto) 0.1 % 01/22/22 05:10 Neut # (Auto) 10.83 10^3/uL (1.8-7.7) H 01/22/22 05:10 Lymph # (Auto) 1.5 10^3/uL (0.8-4.8) 01/22/22 05:10 [place] # (Auto) 2.0 10^3/uL (0.2-0.9) H 01/22/22 05:10 Eos # (Auto) 0.0 10^3/uL (0.0-0.8) 01/22/22 05:10 Baso # (Auto) 0.0 10^3/uL (0.0-0.1) 01/22/22 05:10 Nucleated RBC % (auto) 0.6 % 01/22/22 05:10 Nucleated RBCs # 0.1 /100WBC 01/22/22 05:10 PT 61.00 SECONDS (12.1-14.9) H 01/22/22 05:10 INR 7.00 (0.8-1.2) H* 01/22/22 05:10 Sodium 129 mmol/L (136-145) L 01/22/22 05:10 Potassium 4.6 mmol/L (3.5-5.1) 01/22/22 05:10 Chloride 95 mmol/L (98-107) L 01/22/22 05:10 Carbon Dioxide 25 mmol/L (22-29) 01/22/22 05:10 Anion Gap 13.6 (5-19) 01/22/22 05:10 BUN 70 mg/dL (8-23) H 01/22/22 05:10 Creatinine 2.1 mg/dL (0.5-0.9) H 01/22/22 05:10 GFR Calculation 23.3 mL/min (90-130) L 01/22/22 05:10 Glucose 77 mg/dL (65-115) 01/22/22 05:10 POC Glucose 150 mg/dL (70-110) H 01/22/22 11:06 Calculated Osmolality 287 mOsm/kg (285-295) 01/22/22 05:10 Lactic Acid 8.5 mmol/L (0.5-2.2) H* 01/19/22 08:18 Lactic Acid (Sepsis) 2.9 mmol/L (0.5-2.2) H 01/19/22 11:05 Lactate 2.4 mmol/L (0.5-2.2) H 01/19/22 13:45 Calcium 11.5 mg/dL (8.5-10.5) H 01/22/22 05:10 Phosphorus 4.1 mg/dL (2.5-4.5) 01/19/22 04:45 Magnesium 2.7 mg/dL (1.7-2.3) H 01/22/22 05:10 Total Bilirubin 11.8 mg/dL (0.15-1.2) H* 01/22/22 05:10 AST 115 U/L (0-32) H 01/22/22 05:10 ALT 49 U/L (0-33) H 01/22/22 05:10 Alkaline Phosphatase 102 IU/L (35-105) 01/22/22 05:10 Ammonia 80 umol/L (11-51) H 01/22/22 05:10 C-Reactive Protein 32.2 mg/L (0.0-4.9) H 01/19/22 04:45 Total Protein 5.0 g/dL (6.6-8.7) L 01/22/22 05:10 Albumin 2.1 g/dL (3.5-5.2) L 01/22/22 05:10 Globulin 2.9 g/dL (1.3-4.6) 01/22/22 05:10 Lipase 39 U/L (13-60) 01/19/22 04:45 Procalcitonin 0.93 ng/mL (0-0.5) H 01/19/22 04:45 Urine Color Dark yellow (Yellow) 01/20/22 12:15 Urine Appearance Clear (CLEAR) 01/20/22 12:15 Urine pH 5 (5-7) 01/20/22 12:15 Ur Specific [place] 1.020 (1.005-1.030) 01/20/22 12:15 Urine Protein Neg (Negative) 01/20/22 12:15 Urine Glucose (UA) Norm (Normal) 01/20/22 12:15 Urine Ketones 1+ (Negative) H 01/20/22 12:15 Urine Blood Neg (Negative) 01/20/22 12:15 Urine Nitrate Negative (Negative) 01/20/22 12:15 Urine Bilirubin 2+ (Negative) H 01/20/22 12:15 Urine Urobilinogen 4 mg/dL (Negative) H 01/20/22 12:15 Ur Leukocyte Esterase Negative (Negative) 01/20/22 12:15 Acetaminophen < 5.0 ug/mL (10-30) L 01/19/22 04:45 Ethyl Alcohol < 10 mg/dL (0-10) 01/19/22 04:45 Blood Type O Negative 01/22/22 07:35 Rho(D) Type Negative 01/22/22 07:35 Antibody Screen Negative 01/22/22 07:35 Crossmatch See Detail 01/22/22 07:35 Radiology Impressions Chest/Abdomen/Pelvis CT 01/19/22 04:50 IMPRESSION: Small bilateral pleural effusions with bibasilar atelectasis. IMPRESSION: 1. Cirrhotic morphology of the liver with large volume abdominopelvic ascites. 2. Mild mural thickening jejunal loops and portions of the colon may be reactive to the presence of ascites or could reflect a nonspecific enterocolitis. Chest X-Ray 01/22/22 10:17 IMPRESSION: 1. Right-sided IJ catheter extends into the region of the right atrium. No other significant change when compared to the previous study performed on the same day. Recent Clincial Data Last Vital Signs Temp 97.1 F L 01/22/22 13:14 Pulse 101 H 01/22/22 16:00 Resp 29 H 01/22/22 16:00 BP 77/65 01/22/22 16:00 Pulse Ox 90 01/22/22 16:00 Vital Signs Temp Pulse Resp BP Pulse Ox 01/22/22 16:00 101 H 29 H 77/65 90 01/22/22 15:00 117 H 16 134/74 01/22/22 14:00 116 H 19 H 90/56 92 01/22/22 13:14 97.1 F L 115 H 22 H 96/60 94 01/22/22 13:00 120 H 18 108/48 91 01/22/22 12:34 97.1 F L 113 H 19 H 93 01/22/22 12:00 112 H 20 H 88/52 94 01/22/22 11:30 113 H 23 H 91/55 94 01/22/22 11:00 124 H 31 H 84/61 91 01/22/22 10:42 114 H 26 H 84 L 01/22/22 08:55 111 H 17 91 01/22/22 07:43 97.3 F L 108 H 16 87/58 93 01/22/22 06:00 111 H Intake & Output/Weight 01/20/22 01/21/22 01/22/22 01/23/22 06:59 06:59 06:59 06:59 Intake Total 3400 / 3400 2600 / 2600 2657.5 / 2657.5 1635.055 / 1635.055 Output Total 500 / 500 250 / 250 Balance 3400 / 3400 2100 / 2100 2407.5 / 2407.5 1635.055 / 1635.055 Vitals Last Vital Signs Temp 97.1 F L 01/22/22 13:14 Pulse 101 H 01/22/22 16:00 Resp 29 H 01/22/22 16:00 BP 77/65 01/22/22 16:00 Pulse Ox 90 01/22/22 16:00 TS Medications Medications Hydrocortisone Sodium Succinate (Hydrocortisone 100 Mg/2 Ml Sdv) 50 mg IVP Q8H [facility] Last Admin: 01/22/22 11:17 Dose: Not Given Documented by: Albumin Human (Albumin) 25 gm in 100 mls @ 60 mls/hr IV Q6H [facility] Last Infusion: 01/22/22 13:22 Dose: Infused Documented by: Octreotide Acetate 500 mcg/ (Sodium Chloride) 101 mls @ 10.1 mls/hr IV .Q10H [facility] Last Admin: 01/22/22 11:04 Dose: 50 mcg/hr, 10.1 mls/hr Documented by: Sodium Chloride 154 meq/ (Dextrose) 1,038.5 mls @ 30 mls/hr IV CONT [facility] Last Admin: 01/22/22 11:28 Dose: 30 mls/hr Documented by: Imipenem/Cilastatin Sodium 250 (mg/ Sodium Chloride) 100 mls @ 200 mls/hr IV Q6H [facility] Norepinephrine Bitartrate 8 mg (/ Dextrose) 508 mls @ 0 mls/hr IV .Q0M [facility]; Protocol Ondansetron HCl (Ondansetron 2 Mg/Ml Sdv 2 Ml) 4 mg IVP Q6H PRN PRN Reason: vomiting, or N/V if npo Pantoprazole Sodium (Pantoprazole 40 Mg Sdv) 40 mg IVP Q12H [facility] Last Admin: 01/22/22 11:26 Dose: 40 mg Documented by: Rifaximin (Rifaximin 550 Mg Tablet) 550 mg PO BID [facility]; Protocol Last Admin: 01/22/22 11:06 Dose: 550 mg Documented by: Discontinued Medications Lidocaine HCl 15 ml/ Al Hydrox /Mg Hydrox/Simethicone 30 ml/Sucralfate 1 gm 0 ml PO ONCE ONE Stop: 01/19/22 19:11 Last Admin: 01/19/22 19:50 Dose: 55 suspension Documented by: Dextrose (Dextrose 50% Syringe 50 Ml) 50 ml IVP ONCE ONE Stop: 01/22/22 10:20 Last Admin: 01/22/22 11:01 Dose: Not Given Documented by: Hydrocortisone Sodium Succinate (Hydrocortisone 100 Mg/2 Ml Sdv) 100 mg IVP ONCE ONE Stop: 01/19/22 07:43 Last Admin: 01/19/22 08:13 Dose: 100 mg Documented by: Hydrocortisone Sodium Succinate (Hydrocortisone 100 Mg/2 Ml Sdv) 100 mg IVP ONCE ONE Stop: 01/20/22 10:01 Last Admin: 01/20/22 10:51 Dose: 100 mg Documented by: Lactated Ringer's (Lactated Ringers) 1,000 mls @ 999 mls/hr IV .Q1H1M [facility] Stop: 01/19/22 06:45 Last Infusion: 01/19/22 07:41 Dose: Infused Documented by: Piperacillin Sod/Tazobactam (Sod 3.375 gm/ Sodium Chloride) 50 mls @ 100 mls/hr IV ONCE ONE; Protocol Stop: 01/19/22 05:17 Last Infusion: 01/19/22 07:42 Dose: Infused Documented by: Sodium Chloride (Sodium Chloride 0.9%) 1,000 mls @ 999 mls/hr IV .Q1H1M ONE Stop: 01/19/22 08:42 Last Infusion: 01/19/22 09:14 Dose: Infused Documented by: Vancomycin HCl 1,000 mg/ (Sodium Chloride) 250 mls @ 250 mls/hr IV ONCE ONE; Protocol Stop: 01/19/22 10:26 Last Infusion: 01/19/22 10:36 Dose: Infused Documented by: Lactated Ringer's (Lactated Ringers) 1,000 mls @ 75 mls/hr IV .[id number] [facility] Last Infusion: 01/22/22 11:18 Dose: Infused Documented by: Piperacillin Sod/Tazobactam (Sod 3.375 gm/ Sodium Chloride) 50 mls @ 100 mls/hr IV ONCE ONE; Protocol Stop: 01/19/22 18:32 Last Infusion: 01/20/22 03:43 Dose: Infused Documented by: Piperacillin Sod/Tazobactam (Sod 3.375 gm/ Sodium Chloride) 50 mls @ 100 mls/hr IV ONCE ONE; Protocol Stop: 01/20/22 02:45 Last Infusion: 01/20/22 03:25 Dose: Infused Documented by: Albumin Human (Albumin) 25 gm in 100 mls @ 60 mls/hr IV Q8H [facility] Last Infusion: 01/22/22 05:19 Dose: Infused Documented by: Imipenem/Cilastatin Sodium 500 (mg/ Sodium Chloride) 100 mls @ 200 mls/hr IV Q8H [facility] Last Infusion: 01/22/22 11:19 Dose: Infused Documented by: Sodium Chloride (Sodium Chloride 0.9% (Plus)) Confirm Administered Dose 100 mls @ as directed .ROUTE .STK-MED ONE Stop: 01/22/22 03:03 Last Admin: 01/22/22 04:09 Dose: Not Given Documented by: Dextrose/Sodium Chloride (Dextrose 5%-Sod Chloride 0.9%) 1,000 mls @ 30 mls/hr IV .Q24H [facility] Last Admin: 01/22/22 11:18 Dose: Not Given Documented by: Sodium Chloride (Sodium Chloride 0.9% (100 Ml)) Confirm Administered Dose 100 mls @ as directed .ROUTE .STK-MED ONE Stop: 01/22/22 09:23 Last Admin: 01/22/22 11:00 Dose: 10 mls/hr Documented by: Norepinephrine Bitartrate 4 mg (/ Dextrose) 254 mls @ 0 mls/hr IV .Q0M [facility]; Protocol Last Titration: 01/22/22 15:08 Dose: 8 mcg/min, 30.48 mls/hr Documented by: Norepinephrine Bitartrate 4 mg (/ Dextrose) 254 mls @ 0 mls/hr IV .Q0M [facility]; Protocol Sodium Chloride (Sodium Chloride 0.9% (100 Ml)) Confirm Administered Dose 100 mls @ as directed .ROUTE .STK-MED ONE Stop: 01/22/22 16:30 Imipenem/Cilastatin Sodium (Imipenem-Cilastatin 500 Mg Sdv) Confirm Administered Dose 500 mg .ROUTE .STK-MED ONE Stop: 01/22/22 02:59 Last Admin: 01/22/22 04:09 Dose: Not Given Documented by: Iodixanol (Iodixanol 320 Mg/Ml 100ml Btl) 95 ml .ROUTE .STK-MED ONE Stop: 01/19/22 02:04 Midodrine (Midodrine 5 Mg Tablet) 5 mg PO BID [facility] Last Admin: 01/22/22 09:01 Dose: 5 mg Documented by: Midodrine (Midodrine 5 Mg Tablet) 10 mg PO TID [facility] Phytonadione (Phytonadione (Adult) 10 Mg/Ml Ampule 1 Ml) 10 mg PO ONCE ONE Stop: 01/21/22 07:07 Last Admin: 01/21/22 07:38 Dose: 10 mg Documented by: Phytonadione (Phytonadione (Adult) 10 Mg/Ml Ampule 1 Ml) 10 mg PO ONCE ONE Stop: 01/22/22 06:40 Last Admin: 01/22/22 07:05 Dose: 10 mg Documented by: Allergies No Known Allergies Allergy (Unverified 01/19/22 13:08) Home Medications lactulose 10 gram/15 mL oral solution 30 ml PO BID PRN 01/19/22 [History Confirmed 01/19/22] prednisone 20 mg tablet See Rx Instructions .ROUTE .COMPLEX 01/19/22 [History Confirmed 01/19/22] spironolactone 25 mg tablet 25 mg PO DAILY 01/19/22 [History Confirmed 01/19/22] Discharge Plan Discharge Patient Disposition: Xfer Short-Term Hosp Condition: Stable Prescriptions: No Action prednisone 20 mg Tablet See Rx Instructions .ROUTE .COMPLEX 0RF Rx Instructions: 60 mg orally once daily x 2 weeks, then 40 mg daily x 2 weeks, then 20 mg daily x 4 weeks spironolactone 25 mg Tablet 25 mg PO DAILY 0RF lactulose 10 gram/15 mL Solution 30 ml PO BID PRN (Reason: Constipation) 0RF Discharge Orders: Transfer Out of Facility (Order); Ordered 01/22/22 Ordered By: Nemesio Alejo Transfer Attestations Time Spent in Transfer Care: greater than 30 min Quality Metrics Clinical Quality Measures [ No reported AMI, CVA or VTE this stay] Coding Level of Care Code Acute [employer] for [facility] Fwd Diagnoses Acute hepatic failure K72.00 Abdominal pain R10.9 Hepatitis, autoimmune K75.4 Hyponatremia E87.1 Acute kidney injury N17.9 Ascites R18.8 Anemia D64.9 Hypotension I95.9
[2022-01-22] MEDS: sodium chloride 0.9% (100 ml) 100 ML 50 ML (16:55)
[2022-01-22] MEDS: hydrocortisone 100 mg/2 mL SDV 50 MG IVP (16:58)
[2022-01-22 17:25] LABS: Glucose Point of Care 159 mg/dL (70-110)
--- NOTE | 2022-01-22 17:44 | PC.NURSE ---
Report called to Lamin BRIAN RN. Family at bedside and notified. Patient going by ground.
--- NOTE | 2022-01-22 18:09 | PM.ACPR ---
Procedure/Consent Time out: Time Out Performed: Yes Consent: Consent for Procedure: Consent obtained from patient, Risks & Benefits reviewed and Agrees to proceed with procedure Additional Consent Information: Verbal consent from patient just prior to administration. Family member at the bedside patient agreed to procedure. Reviewed risks and benefits. Per specifically bleeding as the INR is elevated. Patient is acutely deteriorating and needs IV access family and patient expressed understanding wish to proceed. Acute Procedures Central Line Placement: Right IJ: Time out performed: Yes Patient placed on monitor/pulse ox: Yes MD prep: mask, gown and gloves Central line prep: Chlorhexidine scrub Local anesthesia used: lidocaine 1% Amount of anesthesia used (ml): 4 Ultrasound used for placement: Yes Central line lumen inserted: triple Post procedure: sutured in place, good blood return, all ports aspirated, flushed, capped and sterile dressing applied Post procedure x-ray: tip of catheter in good position and no pneumothorax seen Patient tolerated procedure: well and no complications Complications: none Additional comments: Reviewed postplacement x-ray no complications to present in good position. Epistaxis Control: Time out performed: Yes
[2022-01-22 18:20] LABS: Glucose Point of Care 64 mg/dL (70-110)
[2022-01-22 18:20] LABS: Glucose Point of Care 56 mg/dL (70-110)
--- NOTE | 2022-01-22 18:28 | PC.NURSE ---
Patient transferred via [facility] by stretcher to [facility], [facility] (Levo at 8, 6LNC), AAOx1, family at bedside. One unit of plasma and one unit of RBCs continued upon transfer.
== END 2022-01-22 18:15 | disposition short-term general hospital (02) | DRG 441 ==
LOC: ER 01-21 07:59 → MEDSURG 01-21 13:39 → ICU 01-22 10:46
PROVIDERS: Emergency Medicine; Admitting Provider Internal Medicine; Emergency Provider Family Medicine; Visit Provider Internal Medicine
DX: K72.00 Acute and subacute hepatic failure without coma (principal); G93.41 Metabolic encephalopathy; E87.1 Hypo-osmolality and hyponatremia; N17.9 Acute kidney failure, unspecified; R18.8 Other ascites; K75.4 Autoimmune hepatitis; I95.9 Hypotension, unspecified; E16.2 Hypoglycemia, unspecified; D64.9 Anemia, unspecified; I10 Essential (primary) hypertension; E80.6 Other disorders of bilirubin metabolism
CPT/HCPCS: 36415; 36416; 36430; 51702; 71045; 71260; 74177; 80053; 80307; 81003; 82140; 82962; 83605; 83690; 83735; 84100; 84145; 85025; 85610; 86140; 86850; 86900; 86920; 86927; 87040; 93005; 96365; 96367; 96375; 99291; C9113; J0743; J1720; J2354; J2543; J3370; J3430; J7030; J7050; P9016; P9017; P9047; Q9967